=== PATIENT | male | born 1945 | race Two or more races ===

== ENCOUNTER 2024-01-09 07:14 | Inpatient (IN) | payer OTHER ==
[2024-01-09 08:31] LABS: BASO % 0.4 % (0-2.0); EOS % 0.1 % (0-4.5); HEMATOCRIT 30.4 % (35.4-49); HEMOGLOBIN 9.9 GM/dL (11.7-16.9); LYMPH % 13.6 % (8-40); MCHC 32.5 g/dl (32.0-35.9); MEAN CELL VOLUME 86.2 fl (80-96); MEAN PLT VOLUME 7.1 fl (7.5-11.1); MONO % 5.4 % (3.8-10.2); NEUT % 80.5 % (42.8-82.8); PLATELET COUNT 222 10^3/uL (134-434); RBC 3.52 M/mm3 (4.00-5.60); RDW 16.1 % (11.9-15.9); VENOUS BASE EXCESS -0.5 mmol/L (-2-2); VENOUS O2 SATURATION 19.6 % (70-80); VENOUS PCO2 53.3 mmHg (38-52); VENOUS PH 7.308 (7.310-7.410); WHITE BLOOD COUNT 8.4 K/mm3 (4.0-10.0)
[2024-01-09 08:39] LABS: INR 0.97 (0.83-1.09)
[2024-01-09 08:42] LABS: ACTIVATED PTT 31.4 SECONDS (25.2-36.5)
[2024-01-09 08:56] LABS: POTASSIUM 4.8 mmol/L (3.5-5.1)
[2024-01-09 08:59] LABS: CALCIUM 9.3 mg/dL (8.5-10.1)
[2024-01-09 09:00] LABS: ALBUMIN 3.3 g/dl (3.4-5.0); BLOOD UREA NITROGEN 40.6 mg/dL (7-18)
[2024-01-09 09:03] LABS: CREATININE 3.7 mg/dL (0.55-1.3)
[2024-01-09 09:04] LABS: BILIRUBIN,TOTAL 0.7 mg/dL (0.2-1)
[2024-01-09 09:28] LABS: MAGNESIUM 2.3 mg/dL (1.8-2.4)
[2024-01-09 09:31] LABS: PHOSPHOROUS 4.5 mg/dL (2.5-4.9)
[2024-01-09 09:34] LABS: EPI CELLS 16 /uL (0-25.1); HYALINE CASTS 2 /uL (0-3.1); URINE APPEARANCE CLEAR; URINE BACTERIA 14 /uL (0-1359); URINE BILIRUBIN NEGATIVE (NEGATIVE); URINE COLOR DK YELLOW; URINE GLUCOSE (UA) NEGATIVE (NEGATIVE); URINE KETONE TRACE (NEGATIVE); URINE LEUK ESTERASE 1+ (NEGATIVE); URINE NITRITE NEGATIVE (NEGATIVE); URINE PROTEIN 1+ (NEGATIVE); URINE RBC 18 /uL (0-23.9); URINE UROBILINOGEN 0.2 mg/dL (0.2-1.0); URINE WBC 48 /uL (0-25.8)
[2024-01-09 10:21] LABS: YEAST RARE (NEGATIVE)
[2024-01-09 14:20] LABS: ALLENS TEST POSITIVE; ARTERIAL BLD GAS O2 SATURATION 99.6 % (95-98); ARTERIAL BLOOD GAS BASE EXCESS -0.5 mmol/L (-2-2); ARTERIAL BLOOD GAS pH 7.441 (7.350-7.450)
[2024-01-09 16:57] VITALS: BMI 19.2
[2024-01-09] MEDS: DEXAMETHASONE SOD PHOSPHATE 10 MG/1 ML VIAL IVPUSH SCH (18:40)
[2024-01-09] MEDS ORDERED: BISACODYL 10 MG SUPP.RECT PR PRN (19:26)
[2024-01-09] MEDS: REMDESIVIR 100 MG in SODIUM CHLORIDE 250 ML IVPB ONE (20:27)
[2024-01-09] MEDS: SODIUM CHLORIDE 250 ML IV PRN (20:32)
[2024-01-09] MEDS: EPOETIN ALFA-EPBX 2,000 UNIT/ML VIAL IVPUSH ONE (20:37)
[2024-01-09] MEDS: ATORVASTATIN CA 40 MG TABLET (FP) PO SCH (21:42)
[2024-01-10 07:48] LABS: BASO % 0.2 % (0-2.0); HEMOGLOBIN 9.1 GM/dL (11.7-16.9); LYMPH % 18.8 % (8-40); MCHC 32.5 g/dl (32.0-35.9); MONO % 5.3 % (3.8-10.2); NEUT % 75.7 % (42.8-82.8); PLATELET COUNT 201 10^3/uL (134-434); RBC 3.26 M/mm3 (4.00-5.60); RDW 15.8 % (11.9-15.9); WHITE BLOOD COUNT 9.3 K/mm3 (4.0-10.0)
[2024-01-10 08:05] LABS: POTASSIUM 4.4 mmol/L (3.5-5.1)
[2024-01-10 08:10] LABS: BLOOD UREA NITROGEN 26.2 mg/dL (7-18); CALCIUM 8.8 mg/dL (8.5-10.1)
[2024-01-10 08:12] LABS: BILIRUBIN,TOTAL 0.6 mg/dL (0.2-1); TOT PROT 7.3 g/dl (6.4-8.2)
[2024-01-10 08:13] LABS: CREATININE 2.8 mg/dL (0.55-1.3)
[2024-01-10 08:17] LABS: MAGNESIUM 2.1 mg/dL (1.8-2.4)
[2024-01-10] MEDS: ASPIRIN 81 MG CHEWABLE TABLETS PO SCH (09:53)
[2024-01-10] MEDS: METOPROLOL TARTRATE 25 MG TABLET (FP) PO SCH ×2 (09:53→21:22)
[2024-01-10 15:57] VITALS: RESP 18
[2024-01-10] MEDS: REMDESIVIR 100 MG in SODIUM CHLORIDE 250 ML IVPB SCH (17:06)
[2024-01-10] MEDS ORDERED: SODIUM CHLORIDE 250 ML IV PRN (18:09)
[2024-01-10] MEDS ORDERED: MIDODRINE HCL 5 MG TABLET PO SCH (19:27)
[2024-01-10] MEDS ORDERED: BISACODYL 10 MG SUPP.RECT PR PRN (20:32)
[2024-01-10] MEDS: ATORVASTATIN CA 40 MG TABLET (FP) PO SCH (21:22)
[2024-01-10] MEDS: MELATONIN 5 MG TABLETS PO PRN (21:22)
[2024-01-10] MEDS: MIDODRINE HCL 5 MG TABLET PO ONE (22:45)
[2024-01-11 09:07] LABS: HEMATOCRIT 31.2 % (35.4-49); MCH 27.7 pg (25.7-33.7); MCHC 32.1 g/dl (32.0-35.9); MEAN CELL VOLUME 86.4 fl (80-96); MEAN PLT VOLUME 7.3 fl (7.5-11.1); PLATELET COUNT 267 10^3/uL (134-434); RBC 3.61 M/mm3 (4.00-5.60); RDW 15.6 % (11.9-15.9); WHITE BLOOD COUNT 9.7 K/mm3 (4.0-10.0)
[2024-01-11 09:26] LABS: POTASSIUM 4.2 mmol/L (3.5-5.1)
[2024-01-11 09:30] LABS: ALBUMIN 3.1 g/dl (3.4-5.0); CALCIUM 9.2 mg/dL (8.5-10.1)
[2024-01-11 09:31] LABS: MAGNESIUM 2.3 mg/dL (1.8-2.4)
[2024-01-11 09:34] LABS: BILIRUBIN,TOTAL 0.5 mg/dL (0.2-1); CREATININE 3.4 mg/dL (0.55-1.3); PHOSPHOROUS 3.8 mg/dL (2.5-4.9); TOT PROT 7.4 g/dl (6.4-8.2)
[2024-01-11] MEDS ORDERED: MIDODRINE HCL 5 MG TABLET PO SCH (10:00)
[2024-01-11] MEDS: DEXAMETHASONE SOD PHOSPHATE 10 MG/1 ML VIAL IVPUSH SCH (10:04)
[2024-01-11] MEDS: MIDODRINE HCL 5 MG TABLET PO SCH (10:04)
[2024-01-11] MEDS: ASPIRIN 81 MG CHEWABLE TABLETS PO SCH (10:05)
[2024-01-11] MEDS: MIDODRINE HCL 5 MG TABLET PO ONE (11:38)
[2024-01-11] MEDS: REMDESIVIR 100 MG in SODIUM CHLORIDE 270 ML IVPB ONE (12:57)
[2024-01-11] MEDS: EPOETIN ALFA-EPBX 3,000 UNIT/ML VIAL IVPUSH ONE (14:30)
[2024-01-12 07:59] LABS: HEMOGLOBIN 9.4 GM/dL (11.7-16.9); MCH 28.1 pg (25.7-33.7); MCHC 32.4 g/dl (32.0-35.9); MEAN CELL VOLUME 86.7 fl (80-96); MEAN PLT VOLUME 7.3 fl (7.5-11.1); PLATELET COUNT 274 10^3/uL (134-434); RBC 3.34 M/mm3 (4.00-5.60); RDW 16.2 % (11.9-15.9); WHITE BLOOD COUNT 11.6 K/mm3 (4.0-10.0)
[2024-01-12 08:30] LABS: ALBUMIN 3.1 g/dl (3.4-5.0); BLOOD UREA NITROGEN 31.4 mg/dL (7-18)
[2024-01-12 08:33] LABS: PHOSPHOROUS 3.2 mg/dL (2.5-4.9)
[2024-01-12 08:34] LABS: BILIRUBIN,TOTAL 0.8 mg/dL (0.2-1); TOT PROT 7.4 g/dl (6.4-8.2)
[2024-01-12] MEDS: VITAMIN B COMP W-C 1 EA TABLET (NEPHRO-VITE) PO SCH (11:09)
[2024-01-13 10:03] LABS: HEMATOCRIT 30.7 % (35.4-49); HEMOGLOBIN 9.9 GM/dL (11.7-16.9); MCH 28.2 pg (25.7-33.7); MCHC 32.1 g/dl (32.0-35.9); MEAN CELL VOLUME 87.8 fl (80-96); MEAN PLT VOLUME 7.5 fl (7.5-11.1); PLATELET COUNT 314 10^3/uL (134-434); WHITE BLOOD COUNT 9.2 K/mm3 (4.0-10.0)
[2024-01-13 10:15] LABS: POTASSIUM 4.1 mmol/L (3.5-5.1)
[2024-01-13 10:16] LABS: CALCIUM 9.1 mg/dL (8.5-10.1)
[2024-01-13 10:17] LABS: BLOOD UREA NITROGEN 43.8 mg/dL (7-18)
[2024-01-13 10:20] LABS: CREATININE 3.2 mg/dL (0.55-1.3)
[2024-01-13 10:22] LABS: BILIRUBIN,TOTAL 0.7 mg/dL (0.2-1); TOT PROT 7.2 g/dl (6.4-8.2)
[2024-01-13 18:33] VITALS: BP 142/89; PULSE 89; TEMP 98.4
== END 2024-01-13 20:52 | DRG 137 ==
LOC: JER 07:14 → JERBED 08:38 → INTOOBSV 08:38 → UNDOADMOB 08:38 → J7W 12:57 → JERBED 12:57 → J7W 13:43 → JICU 13:43 → J7W 22:00 → JERBED 22:00 → OBSVTOIN 01-10 14:11 → J6S 01-10 18:11 → J5S 01-11 10:50
PROVIDERS: ADMIT Internal Medicine
PROC: XW033E5 Introduction of Remdesivir Anti-infective into Peripheral Vein, Percutaneous Approach, New Technology Group 5 (ICD-10-PCS; principal; 2024-01-09)
PROC: 5A1D70Z Performance of Urinary Filtration, Intermittent, Less than 6 Hours Per Day (ICD-10-PCS; 2024-01-11)
DX: U07.1 COVID-19 (principal); J96.01 Acute respiratory failure with hypoxia; G93.41 Metabolic encephalopathy; I12.0 Hypertensive chronic kidney disease with stage 5 chronic kidney disease or end stage renal disease; I69.354 Hemiplegia and hemiparesis following cerebral infarction affecting left non-dominant side; N18.6 End stage renal disease; R64 Cachexia; Z68.1 Body mass index [BMI] 19.9 or less, adult; Z99.2 Dependence on renal dialysis
CPT/HCPCS: 0241U-QW; 36415; 36600; 70450-TC; 70496-TC; 70498-TC; 71045-TC-FY; 80053; 80061; 81003; 82272; 82550; 82607; 82803; 82962; 83036; 83605; 83735; 84100; 84443; 84484; 85025; 85027; 85610; 85730; 86140; 86704; 86780; 86803; 86850; 86900; 86901; 87040; 87086; 87340; 87481; 87517; 93005; 93010; 97116-GP; 97161-GP; 99285-25; G0378; J0248; J1100; Q5106; Q9967